=== PATIENT | male | born 2000 | race Caucasian/White ===

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

== ENCOUNTER 2025-05-07 07:42 | Day surgery (SDC) | payer OTHER, SELFPAY ==
--- NOTE | 2025-05-05 13:02 | EKG12_ITS ---
Test Reason : PREOP Blood Pressure : */* mmHG Vent. Rate : 106 BPM Atrial Rate : 106 BPM P-R Int : 94 ms QRS Dur : 82 ms QT Int : 350 ms P-R-T Axes : 20 38 80 degrees QTcB Int : 464 ms Sinus tachycardia with short FL Otherwise normal ECG Confirmed by LICHA WALLACE, SYD ([id number]), acquisitions editor JIM SALAZAR ([id number]) on 05/06/2025 9:35:01 AM Referred By: Harjinder Moore Confirmed By: SYD HURT MD
--- NOTE | 2025-05-05 14:33 | PAT.ANE_ITS ---
Pre-Assessment Diagnosis/Proposed Procedure Planned Operative Procedure(s): (L) LEFT SHOULDER ARTHROSCOPIC ROTATOR CUFF DEBRIDEMENT AND SUBACROMIAL DECOMPRESSION Anesthesia History Anesthesia History - production control manager: Anesthesia History - production control manager Hx Hospitalization No 05/04/25 15:22 Any Problems With Anesthesia No 05/04/25 15:22 Cholinesterase deficiency No 05/04/25 15:22 You/Your Family Experience No 05/04/25 15:22 fever (hyperthermia) with Relationship Recent Exposure to Contagious Disease Does patient have nerve No 05/04/25 15:22 stimulator Patient instructed to have device shut off --Does patient have Pacemaker or ICD? When Was Last Pacemaker Check QUESTION #4 FULL TEXT: You/Your Family Experience fever (hyperthermia) with Anesthesia Last Oral Intake Last Oral intake: Last Oral Intake NPO since Meds taken in AM with sips of water? Meds patient instructed to take am of surgery PONV PONV - production control manager: PONV - production control manager Female No 05/04/25 15:22 HX of Motion Sickness No 05/04/25 15:22 HX of N/V After Surgery No 05/04/25 15:22 Non-Smoker No 05/04/25 15:22 Duration of Surgery greater Yes 05/04/25 15:22 than 60 minutes Number of Risk Factors 1 05/04/25 15:22 PONV Score Low Risk 05/04/25 15:22 Respiratory Assessment Respiratory Assessment - production control manager: Respiratory Tract Infection Hx - production control manager Hx Respiratory Tract Infection No 05/04/25 15:22 STOP Sleep Apnea STOP Sleep Apnea - production control manager: STOP Sleep Apnea - production control manager Hx Hypertension No 05/04/25 15:22 Hx Sleep Apnea No 05/04/25 15:22 CPAP BIPAP Do you snore loudly (louder No 05/04/25 15:22 than talking or can be heard Do you often feel tired/ No 05/04/25 15:22 fatigued/ sleepy during daytime? Has anyone observed you stop No 05/04/25 15:22 breathing during sleep? STOP Results Negative 05/04/25 15:22 QUESTION #5 FULL TEXT : Do you snore loudly (louder than talking or can be heard through closed doors)? 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 Specify any problems Hx of Preganancy in last 3 N/A 05/04/25 15:22 Months Nurse Filling Out Transfusion MGRIFFITH 05/04/25 15:22 & Questions: Date: 05/04/25 05/04/25 15:22 Time: 15:24 05/04/25 15:22 Patient unable to answer at this time (ie. confused, unrespo /Reproduction History /Reproductive History - production control manager: /Reproductive Hx- production control manager Hx Now No 05/04/25 15:22 Gestational Age (in weeks): EDC: Hx Hx Para Hx Section SAB No 05/04/25 15:22 PFSH Medical History (Updated 05/04/25 @ 15:31 by Do Waite) Marijuana use Wears glasses Alcohol use ADD (attention deficit disorder) Smoker Physical exam, pre-employment Home Medications ?Medication ?Instructions ?Recorded ?Last Taken ?Type dextroamphetamine-amphetamine ER 15 mg PO DAILY Unknown History 15 mg 24hr capsule,extend release THC 20 mg PO QHS 05/04/25 Unknow n History Allergy/AdvReac Type Severity Reaction Status Date / Time No Known Allergies Allergy Verified 05/04/25 15:19 Social History Smoking Status: Current every day smoker tobacco type: e-cigarettes Audit: Pertinent Findings Pertinent Findings EKG Perinent findings: EKG performed 05/05/2025: Shows sinus tachycardia with short ME interval, prolonged QTc interval, otherwise normal EKG. Recommendation Anesthesia Recommendation Anesthesia recommendation: OPTIMIZED for anesthesia
[2025-05-05 15:13] LABS: Anion Gap 14 (5-15); BUN 15 mg/dL (4-19); BUN/Creat Ratio 17.5 RATIO (10-20); Calcium,Total 9.5 mg/dL (7.6-11.0); Carbon Dioxide 20.0 mmol/L (21.0-32.0); Chloride 106 mmol/L (98-108); Glucose 100 mg/dL (70-99); Potassium 4.1 mmol/L (3.3-5.1)
[2025-05-07] VITALS (11 sets, daily range): BP systolic 112–141; BP diastolic 57–87; PULSE 90–112; RESP 16–19; TEMP 36.2–36.4; O2SAT 93–98; BMI 49.8
[2025-05-07] MEDS: Lactated Ringers 1,000 ML 15 ML IV (08:06)
--- NOTE | 2025-05-07 08:34 | PCM.PRE.AN2 ---
ASA Classification* ASA Classification ASA Classification: 3 Assessment & Plan Anesthesia* Anesthesia Assessment Anesthesia Assessment: Discussed sedation and/or anesthesia options, risks, benefits, and alternatives with patient/parents/legal guardian/POA. Questions invited. The patient/parents/legal guardian/POA seems to understand and agrees to proceed with anesthesia plan. Reviewed the physical assessment, medical history, allergy history and patient home medications list prior to surgery/procedure/anesthetic and documented any changes. Performed airway and anesthesia risk assessments. Anesthesia Type Anesthesia Type: General (The patient did not appear to understand n.p.o. guidelines. He was drinking up until arriving today. With the timing of surgery he would meet criteria for under 2 hours of clear liquids. I am not sure I trust his judgment and believe that he should be intubated for the procedure.) History Source History Obtained from:: Patient and Chart Anesthesia Focused Assessment* Temperature: 97.5 F Pulse Rate: 100 Blood Pressure: 141/87 Respiratory Rate: 16 Pulse Ox: 98 Oxygen Delivery Method: Room Air Airway Assessment Mouth opens: 2 cm Mallampati Score: IV Teeth Condition: Intact Neck Range of motion (ROM): Full ROM Labs Anesthesia Preop lab: CBC CHEMISTRY Potassium 4.1 mmol/L (3.3-5.1) 05/05/25 13:32 05/05/25 Sodium 140 mmol/L (133-145) 05/05/25 13:32 05/05/25 BUN 15 mg/dL (4-19) 05/05/25 13:32 05/05/25 Creatinine 0.84 mg/dL (0.70-1.20) 05/05/25 13:32 05/05/25 Glucose 100 mg/dL (70-99) H 05/05/25 13:32 05/05/25 COAG Pre-Assessment Diagnosis/Proposed Procedure Planned Operative Procedure(s): (L) LEFT SHOULDER ARTHROSCOPIC ROTATOR CUFF DEBRIDEMENT AND SUBACROMIAL DECOMPRESSION Anesthesia History 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 When Was Last Pacemaker Check QUESTION #4 FULL TEXT: You/Your Family Experience fever (hyperthermia) with Anesthesia Last Oral Intake Last Oral intake: Last Oral Intake NPO since 23:00 05/07/25 07:57 Meds taken in AM with sips of No 05/07/25 07:57 water? Meds patient instructed to take am of surgery PONV PONV - chemistry technical officer: PONV - chemistry technical officer Female No 05/04/25 15:22 HX of Motion Sickness No 05/04/25 15:22 HX of N/V After Surgery No 05/04/25 15:22 Non-Smoker No 05/04/25 15:22 Duration of Surgery greater Yes 05/04/25 15:22 than 60 minutes Number of Risk Factors 1 05/04/25 15:22 PONV Score Low Risk 05/04/25 15:22 Height & Weight Height & Weight: Anesthesia: Height & Weight Height 5 ft 11 in 05/07/25 07:57 Weight: 162 kg 05/07/25 07:57 Body Mass Index (BMI) 49.8 05/07/25 07:57 Respiratory Assessment Respiratory Assessment - chemistry technical officer: Respiratory Tract Infection Hx - chemistry technical officer Hx Respiratory Tract Infection No 05/04/25 15:22 STOP Sleep Apnea STOP Sleep Apnea - chemistry technical officer: STOP Sleep Apnea - chemistry technical officer Hx Hypertension No 05/04/25 15:22 Hx Sleep Apnea No 05/04/25 15:22 CPAP BIPAP Do you snore loudly (louder No 05/04/25 15:22 than talking or can be heard Do you often feel tired/ No 05/04/25 15:22 fatigued/ sleepy during daytime? Has anyone observed you stop No 05/04/25 15:22 breathing during sleep? STOP Results Negative 05/04/25 15:22 QUESTION #5 FULL TEXT : Do you snore loudly (louder than talking or can be heard through closed doors)? 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 Specify any problems Hx of Preganancy in last 3 N/A 05/04/25 15:22 Months Nurse Filling Out Transfusion MGRIFFITH 05/04/25 15:22 & Questions: Date: 05/04/25 05/04/25 15:22 Time: 15:24 05/04/25 15:22 Patient unable to answer at this time (ie. confused, unrespo /Reproduction History /Reproductive History - chemistry technical officer: /Reproductive Hx- chemistry technical officer Hx Now No 05/04/25 15:22 Gestational Age (in weeks): EDC: Hx Hx Para Hx Section SAB No 05/04/25 15:22 Active Medications Active Medications: Current Medications Generic Name Dose Route Start Last Admin Trade Name Freq PRN Reason Stop Dose Admin Cefazolin Sodium 3 gm/ Sodium 115 mls @ 200 mls/hr 05/07/25 09:45 Chloride IV 05/07/25 10:19 INTRAOP ONE Lactated Ringer's 1,000 mls @ 15 mls/hr 05/07/25 08:00 05/07/25 08:06 IV 15 mls/hr .Q48H FARIDA Administration PFSH Medical History (Updated 05/04/25 @ 15:31 by Do Waite) Marijuana use Wears glasses Alcohol use ADD (attention deficit disorder) Smoker Physical exam, pre-employment Home Medications ?Medication ?Instructions ?Recorded ?Last Taken ?Type dextroamphetamine-amphetamine ER 15 mg PO DAILY 11/13/19 05/06/25 History 15 mg 24hr capsule,extend release THC 20 mg PO QHS 05/04/25 Unknown History Allergy/AdvReac Type Severity Reaction Status Date / Time No Known Allergies Allergy Verified 05/07/25 07:55 Social History Smoking Status: Current every day smoker tobacco type: e-cigarettes Review of Systems (Anesthesia) ROS Narrative System reviewed and no additional complaints, except as documented.
[2025-05-07] MEDS: Midazolam 2 MG/2 ML Syringe IV (10:05)
[2025-05-07] MEDS: Cefazolin 1 GM/5 ML Vial 3 GM IV (10:20)
[2025-05-07] MEDS: Lidocaine 1% (5 ml sdv) 5 ML Vial 10 ML IV (10:25)
[2025-05-07] MEDS: Epinephrine (1 mg/ml) 1 MG/ML VIAL (10:50)
[2025-05-07] MEDS: dexMEDEtomidine 200 MCG/2 ML ML 40 MCG IV (11:50)
--- NOTE | 2025-05-07 12:07 | OP.PCM_ITS ---
Operative Report (Standard) Operative Information Date of Procedure: 05/07/25 Pre-Operative Diagnosis: 1. Left shoulder subacromial impingement syndrome 2. Left shoulder partial rotator cuff tear Post-Operative Diagnosis: 1. Left shoulder subacromial impingement syndrome 2. Left shoulder full-thickness supraspinatus rotator cuff tear Surgery/Procedure Performed: Left shoulder arthroscopic rotator cuff repair and subacromial decompression advocacy director: Yes National Account Manager: Loretta Lopez Tasks completed by registered nurse first assistant: Opening & closing, Implanting device and Retracting Additional education administrative assistant?: No Type of Anesthesia: General/Regional RN Documented Start/Stop Times: Operation Date: 05/07/25 09:45 Case Time Into Pre-Op 05/07/25 07:45 Anesthesia Start 05/07/25 10:29 Into Room 05/07/25 10:29 Procedure Start 05/07/25 10:48 Procedure End 05/07/25 11:48 Anesthesia End 05/07/25 12:01 Out of Room 05/07/25 12:01 Into Recovery 05/07/25 12:05 Procedure Start Time: 10:48 Procedure Stop Time: 11:48 Select all DRAINS/GRAFTS/IMPLANTS that apply: Implanted device Implanted device details: Arthrex triple loaded fiber tack anchor, Arthrex bio composite 4.75 mm swivel lock anchor Estimated Blood Loss: 10 cc Specimen collected: No Description of surgery: Patient was identified in the preoperative holding area by name, medical record number, and date of . The operative extremity was marked. All questions were answered to the patient satisfaction. Interscalene block was then administered by anesthesia staff. At time of his procedure, patient was brought to the operative suite and positioned supine on a standard operating table. General anesthesia was induced and LMA placed. Patient was then positioned in the lateral decubitus position with the left side up. Axillary roll was placed. All bony prominences were well-padded. He was held in place with a beanbag. We spun the bed 45 degrees. Right extremity was then prepped and draped in a normal, sterile orthopedic fashion. A timeout was called confirming the side, site, and operation to be performed. No concerns were voiced and we elected to proceed with surgery. 3 g Ancef was administered IV prior to incision by anesthesia staff. Right upper extremity was placed in arthroscopic traction with 15 pounds of traction force applied to the right arm throughout the arthroscopic portion the case approximately 1 hour. I then established a standard posterior portal 2 fingerbreadths inferior medial posterior lateral scapular spine border. Blunt tipped trocar was used to enter the glenohumeral joint which was filled normal saline with epinephrine. Diagnostic arthroscopy was commenced. Glenohumeral joint appeared nearly completely pristine with pristine cartilage, pristine biceps tendon and labrum, capsule was unremarkable without loose body identification. Supraspinatus demonstrated focal 5 x 5 mm partial tearing in its mid substance along the articular side which was debrided with a shaver. No obvious full-thickness tear was noted from the articular side. I withdrew the arthroscope and reentered the shoulder and subacromial sp randall. Extensive bursitis was noted. Lateral portal was established and limited bursectomy performed. The undersurface of the acromion was skeletonized and a prominent downsloping spur which appeared to be the culprit for his persistent impingement syndrome was noted. Acromioplasty was performed via bone block technique to a type I acromion in standard fashion. The bursal side of the rotator cuff was then examined. There was a 5 x 5 mm tear noted on the bursal side which was probed. Probing revealed a focal full-thickness tear. This was debrided with a shaver. Given the tear size and location I elected to proceed with rotator cuff repair. I then proceeded with fixation. I first placed a medial row anchor along the articular margin of the footprint via percutaneous portal. I used a triple loaded fiber tack anchor which was placed in standard fashion. I proceeded with placing [id number] repair sutures in standard fashion working from lateral to medial with 2 of the sutures, the third was removed from the anchor and discarded. I then sequentially tied the corresponding suture which compressed the tear well and reapproximated the [id number] tear that was generated ia trogenically. There was a small portion of tendon which was not reduced at the lateral margin of the footprint. I placed a #2 suture tape the inverted mattress through the anterior and posterior margins with a scorpion suture passer which was then placed into a swivel lock anchor. This was placed at the lateral margin of the supraspinatus footprint with excellent fixation. No remaining dogears were noted. Anatomic compression and reduction of the rotator cuff was noted. Repair was stable to probing. I then withdrew the arthroscope and remaining arthroscopic instruments. Excess fluid was drained from the shoulder. Portal sites were closed interrupted [id number] fashion with a 3-0 nylon suture. Bulky sterile compression dressing was applied. Patient was placed in an UltraSling. He was safely extubated in the operative suite and awakened from anesthesia. He tolerated the procedure well without apparent complication. He was transferred to his gurney and subsequently to PACU in stable condition. Need for skilled education administrative assistant: Loretta Lopez PA-C was critical to the outcome of the case. During the course of the procedure the physician education administrative assistant played a vital role. Her intimate knowledge of my steps in the procedure aided in safe and expedient completion of the procedure. The PA played a vital role in positioning particularly in obtaining the appropriate positioning. The PA was also vital in the retraction of soft tissues during the exposure and protecting vital structures. The PA was also vital and obtaining tendon reduction and assisting with hardware placement. She also played a vital role in closure and sling application with my direct supervision. Postoperative plan: Follow-up in 2 weeks for suture removal and initiation of physical therapy. Standard rotator cuff repair protocol. Multimodal pain management with Tylenol, NSAIDs, and oxycodone as prescribed. Aspirin 81 mg twice daily for DVT prophylaxis x 2 weeks. Ice to the shoulder. Sling x 6 weeks. Surgical Findings: Focal full-thickness supraspinatus tear, prominent downsloping acromial spur. Complications Complications: No Admit VTE Documentation VTE Present on Admission: No VTE Mechan Device Prophylaxis: SCD's VTE Pharm Prophylaxis ordered?: Yes
--- NOTE | 2025-05-07 12:08 | PCM.POST.ANE ---
Anesthesia: Postop Eval I Current Vital Signs Temperature: 97.2 F Pulse Rate: 100 Blood Pressure: 138/77 Respiratory Rate: 16 Pulse Ox: 93 Assessment Airway patent: Yes Spontaneous unlabored respirations: Yes nausea: No Vomiting: No Anesthesia Complication: No Fluid Hydration Crystalloid volume administer (ml): 1,200 Total IV fluid infused: 1,200 Progress Note Anesthesia document: Postop Eval 1 completed: Yes
[2025-05-07] MEDS: Ketorolac 30 MG/ML Syringe IV (13:29)
--- NOTE | 2025-05-07 13:49 | POSTOPAN2_ITS ---
Anesthesia Postop Eval I Sum Postop Eval Completion status Anesthesia document: Postop Eval 1 completed: Yes Anesthesia Postop Eval I Summary Anesthesia Postop Eval I Summary: Anesthesia Postop Eval I: Assessment Summary Airway patent Yes 05/07/25 12:08 [email or web address] Spontaneous unlabored Yes 05/07/25 12:08 [email or web address] respirations Mental status nausea No 05/07/25 12:08 [email or web address] Vomiting No 05/07/25 12:08 [email or web address] Anesthesia Postop Eval I: Fluid Summary Crystalloid volume administer 1,200 05/07/25 12:08 FIG [email or web address] (ml) Colloids volume administered ( ml) Blood Product volume administered (ml) Total IV fluid infused 1,200 05/07/25 12:08 [email or web address] Anesthesia Postop Eval I: Summary Notes Anesthesia Complication No 05/07/25 12:08 [email or web address] Anesthesia Complication Comment: Post-operative progress note Anesthesia: Postop Eval II Evaluation Mental status: Awake Pain Level: 0 nausea: No Vomiting: No Complications Anesthesia Complication: No
--- NOTE | 2025-05-07 13:49 | PCM.POSTANE2 ---
Anesthesia Postop Eval I Sum Postop Eval Completion status Anesthesia document: Postop Eval 1 completed: Yes Anesthesia Postop Eval I Summary Anesthesia Postop Eval I Summary: Anesthesia Postop Eval I: Assessment Summary Airway patent Yes 05/07/25 12:08 LICENSING ANALYST.TNES Spontaneous unlabored Yes 05/07/25 12:08 LICENSING ANALYST.TNES respirations Mental status nausea No 05/07/25 12:08 LICENSING ANALYST.TNES Vomiting No 05/07/25 12:08 LICENSING ANALYST.TNES Anesthesia Postop Eval I: Fluid Summary Crystalloid volume administer 1,200 05/07/25 12:08 LICENSING ANALYST.TNES (ml) Colloids volume administered ( ml) Blood Product volume administered (ml) Total IV fluid infused 1,200 05/07/25 12:08 LICENSING [email or web address].TNES Anesthesia Postop Eval I: Summary Notes Anesthesia Complication No 05/07/25 12:08 LICENSING [email or web address].TNES Anesthesia Complication Comment: Post-operative progress note Anesthesia: Postop Eval II Evaluation Mental status: Awake Pain Level: 0 nausea: No Vomiting: No Complications Anesthesia Complication: No
== END 2025-05-07 13:59 | disposition home or self-care (01) ==
LOC: SDC 07:44 → AC 07:45
PROVIDERS: Anesthesiology; PCP Family Medicine; Referring Provider Student in an Organized Health Care Education/Training Program; Visit Provider Student in an Organized Health Care Education/Training Program
PROC: (CPT 29827; principal; 2025-05-07 09:25)
DX: M75.42 Impingement syndrome of left shoulder (principal); Z68.42 Body mass index [BMI] 45.0-49.9, adult; M75.112 Incomplete rotator cuff tear or rupture of left shoulder, not specified as traumatic; M75.52 Bursitis of left shoulder; M19.012 Primary osteoarthritis, left shoulder; M75.82 Other shoulder lesions, left shoulder; F98.8 Other specified behavioral and emotional disorders with onset usually occurring in childhood and adolescence; E66.9 Obesity, unspecified; F17.290 Nicotine dependence, other tobacco product, uncomplicated; Z79.899 Other long term (current) drug therapy
CPT/HCPCS: 29827; 29826; 01630; 64415; 36415; 80048; 93005; C1713; J2405